=== PATIENT | male | born 1985 | race Caucasian/White ===

== ENCOUNTER 2020-06-09 02:12 | Emergency (ER) | payer OTHER ==
[~2020-06-09] VITALS: Ht 177.8 cm; Wt 82.7 kg
[2020-06-09 02:27] VITALS: Ht 177.8 cm; Wt 82.7 kg
[2020-06-09 03:33] VITALS: BP 107/65
== END 2020-06-09 03:33 | disposition home or self-care (01) ==
LOC: ED 02:12
DX: T78.1XXA Other adverse food reactions, not elsewhere classified, initial encounter (principal); J02.9 Acute pharyngitis, unspecified; X58.XXXA Exposure to other specified factors, initial encounter
CPT/HCPCS: J1100; J1200